=== PATIENT | female | born 1980 | race Caucasian/White ===

== ENCOUNTER 2018-09-19 10:11 | Emergency (ER) | payer OTHER, SELFPAY ==
[2018-09-19 12:24] LABS: Urine Bacteria <20 /HPF (<20); Urine RBC <5 /HPF (NONE SEEN)
[2018-09-19 12:25] LABS: Urine Culture Reflex Order REFLEXED
[2018-09-19 12:27] LABS: Urine Blood NEGATIVE (NEG); Urine Glucose NEGATIVE (NEG); Urine Protein NEGATIVE (NEG)
[2018-09-19 12:27] LABS: Absolute Lymphocytes (CBC) 2.9 K/uL (0.7-4.9); Absolute Monocytes 0.4 K/uL (0.1-1.3); Absolute Neutrophil 6.4 K/uL (1.8-8.0); Basophils % 0.6 % (0-1.3); Eosinophils % 2.2 % (0-4.4); Lymphocytes % 28.9 % (15.3-44.8); MCH 28.3 pg (27.0-35.0); MCV 82.3 fL (80-100); MPV 7.4 fL (7.6-11.3); Monocytes % 3.8 % (3.3-12.3); RBC Red Blood Cell Count 5.35 M/uL (3.86-4.86)
[2018-09-19 12:41] LABS: Albumin 3.8 g/dL (3.4-5.0); Bilirubin Direct 0.1 mg/dL (0-0.2); Bilirubin Total 0.3 mg/dL (0.2-1.0); Protein, Total 7.3 g/dL (6.4-8.2)
--- NOTE | 2018-09-19 14:34 | RAD REPORT ---
EXAM DESCRIPTION: CT - Abdomen Pelvis W Contrast - 09/19/2018 2:16 pm CLINICAL HISTORY: Abdominal pain. Right lower quadrant pain COMPARISON: None. TECHNIQUE: Computed axial tomography of the abdomen and pelvis was obtained. 100 cc Isovue-300 is ad ministered intravenously. Oral contrast was given. All CT scans are performed using dose optimization technique as appropriate and may include automated exposure control or mA/KV adjustment according to patient size. FINDINGS: The gallbladder is been removed 14 millimeter enhancing lesion is present within the posterior segment of the right lobe of the liver . Spleen, pancreas, adrenals and kidneys appear unremarkable. The appendix is normal caliber. There is no evidence of diverticulitis An adnexal mass is not seen Ventral hernia repair IMPRESSION: 14 millimeter enhancing lesion within the liver may represent a hemangioma or other lesi on. Ultrasound in 3 months is recommended for re-evaluation No acute abnormality seen
--- NOTE | 2018-09-19 14:37 | EDPHYS ---
Physician Documentation [facility] Name: Ila Jo Age: 37 yrs Sex: Female : 1980 Arrival Date: 09/19/2018 Time: 10:17 Bed 17 Private MD: None, None ED Physician Alvarado Stroud HPI: 09/19 12:23 This 37 yrs old Female presents to ER via Ambulatory with complaints of kb Abdominal Pain. 12:23 The patient presents with abdominal pain right lower quadrant. Onset: The kb symptoms/episode began/occurred 1 week(s) ago, and became worse. The symptoms do not radiate. Associated signs and symptoms: Pertinent positives: nausea, Pertinent negatives: anorexia, blood in stools, chest pain, constipation, diarrhea, dysuria, fever, headache, hematuria, palpitations, shortness of breath, vaginal discharge, vomiting, vomiting blood. The symptoms are described as constant. Modifying factors: The symptoms are alleviated by nothing, the symptoms are aggravated by pressure. Severity of pain: At its worst the pain was moderate in the emergency department the pain is unchanged. The patient has not experienced similar symptoms in the past. The patient has not recently seen a physician. Pt reports RLQ pain that started a week ago and has been getting progressively worse. Reports she was a month late on her menstrual cycle so she took a test and it was positive. Had tubes tied 7 years ago. Historical: - Allergies: 10:25 PENICILLINS; ph - Home Meds: 10:25 None [Active]; ph - PMHx: 10:25 None; ph - PSHx: 10:26 ; Tubal ligation; Hernia repair; ph - Immunization history:: Adult Immunizations unknown. - Social history:: Smoking status: Patient uses tobacco products, denies chronic smoking, but will smoke occasionally. ROS: 12:22 Constitutional: Negative for fever, chills, and weight loss, Cardiovascular: Negative kb for chest pain, palpitations, and edema, Respiratory: Negative for shortness of breath, cough, wheezing, and pleuritic chest pain, Back: Negative for injury and pain, : Negative for injury, bleeding, discharge, and swelling, MS/Extremity: Negative for injury and deformity, Skin: Negative for injury, rash, and discoloration, Neuro: Negative for headache, weakness, numbness, tingling, and seizure. 12:22 Abdomen/GI: Positive for abdominal pain, Negative for nausea, vomiting, and diarrhea, constipation, abdominal cramps, abdominal distension, anorexia. Exam: 12:22 Constitutional: This is a well developed, well nourished patient who is awake, alert, kb and in no acute distress. Head/Face: Normocephalic, atraumatic. Chest/axilla: Normal chest wall appearance and motion. Nontender with no deformity. No lesions are appreciated. Cardiovascular: Regular rate and rhythm with a normal S1 and S2. No gallops, murmurs, or rubs. Normal PMI, no JVD. No pulse deficits. Respiratory: Lungs have equal breath sounds bilaterally, clear to auscultation and percussion. No rales, rhonchi or wheezes noted. No increased work of breathing, no retractions or nasal flaring. Back: No spinal tenderness. No costovertebral tenderness. Full range of motion. Skin: Warm, dry with normal turgor. Normal color with no rashes, no lesions, and no evidence of cellulitis. MS/ Extremity: Pulses equal, no cyanosis. Neurovascular intact. Full, normal range of motion. Neuro: Awake and alert, GCS 15, oriented to person, place, time, and situation. Cranial nerves II-XII grossly intact. Motor strength 5/5 in all extremities. Sensory grossly intact. Cerebellar exam normal. Normal gait. 12:22 Abdomen/GI: Inspection: abdomen appears normal, Bowel sounds: normal, in all quadrants, Palpation: soft, in all quadrants, moderate abdominal tenderness, in the right lower quadrant. Vital Signs: 10:24 BP 130 / 88; Pulse 80; Resp 18; Temp 97.8; Pulse Ox 98% on R/A; Weight 94.8 kg; Height ph 5 ft. 5 in. (165.10 cm); Pain 9/10; 12:01 BP 125 / 95; Pulse 83; Resp 18; Pulse Ox 99% on R/A; em 13:30 BP 112 / 84; Pulse 76; Resp 18; Pulse Ox 99% on R/A; Pain 9/10; em 14:30 BP 115 / 87; Pulse 70; Resp 18; Pulse Ox 99% on R/A; em 10:24 Body Mass Index 34.78 (94.80 kg, 165.10 cm) ph MDM: 11:35 Patient medically screened. kb 12:21 Data reviewed: vital signs, nurses notes. Data interpreted: Pulse oximetry: on room air kb is 98 %. Interpretation: normal. 14:36 Counseling: I had a detailed discussion with the patient and/or guardian regarding: the kb historical points, exam findings, and any diagnostic results supporting the discharge/admit diagnosis, lab results, radiology results, the need for outpatient follow up, a family practitioner, to return to the emergency department if symptoms worsen or persist or if there are any questions or concerns that arise at home. 09/19 11:45 Order name: Urine Dipstick--Ancillary (enter results) em1 09/19 11:45 Order name: Urine --Ancillary (enter results) em1 09/19 11:46 Order name: Basic Metabolic Panel kb 09/19 11:46 Order name: CBC with Diff kb 09/19 11:46 Order name: Hepatic Function 09/19 11:46 Order name: Lipase kb 09/19 11:46 Order name: Urine Microscopic Only 09/19 12:26 Order name: Urine Microscopic Only; Complete Time: 12:29 EDMS 09/19 12:27 Order name: Urine --Ancillary; Complete Time: 12:29 EDMS 09/19 12:27 Order name: Urine Dipstick-Ancillary; Complete Time: 12:29 EDMS 09/19 12:39 Order name: CBC with Automated Diff; Complete Time: 12:40 EDMS 09/19 12:41 Order name: Basic Metabolic Panel; Complete Time: 12:42 EDMS 09/19 12:41 Order name: Liver (Hepatic) Function; Complete Time: 12:42 EDMS 09/19 12:41 Order name: Lipase; Complete Time: 12:42 EDMS 09/19 10:34 Order name: Urine Test (obtain specimen); Complete Time: 11:44 kb 09/19 10:34 Order name: Urine Dipstick-Ancillary (obtain specimen); Complete Time: 11:44 kb 09/19 11:46 Order name: IV Saline Lock; Complete Time: 13:38 kb 09/19 11:46 Order name: Labs collected and sent; Complete Time: 13:38 kb 09/19 11:46 Order name: CT Abd/Pelvis - W/Contrast kb 09/19 14:35 Order name: CT; Complete Time: 14:35 EDMS Administered Medications: No medications were administered Disposition: 09/19/18 14:37 Discharged to Home. Impression: Lower abdominal pain, unspecified. - Condition is Stable. - Discharge Instructions: Abdominal Pain, Adult, [id number]. - Prescriptions for Diclofenac Sodium 75 mg Oral Tablet, Delayed Release (E.C.) - take 1 tablet by ORAL route 2 times per day As needed; 30 tablet. - Medication Reconciliation Form, Thank You Letter, Antibiotic Education, Prescription Opioid Use form. - Follow up: Emergency Department; When: As needed; Reason: Worsening of condition. Follow up: Private Physician; When: 2 - 3 days; Reason: Recheck today's complaints, Continuance of care, Re-evaluation by your physician. Addendum: 09/21/2018 09:10 Co-signature as Attending Physician, Alvarado Stroud MD I agree with the assessment and k dr plan of care. Signatures: Dispatcher [employer] EDCO Megan Landrum, K [employer] SCHOOL PRINCIPAL-C K [employer] SCHOOL PRINCIPAL-Ckb Alvarado Stroud MD MD [facility] Roberto Carlos Huerta, INSIDE CHANNEL ACCOUNT MANAGER INSIDE CHANNEL ACCOUNT MANAGER em Josee Allison RN RN ph Corrections: (The following items were deleted from the chart) 09/19 15:09 14:37 09/19/2018 14:37 Discharged to Home. Impression: Lower abdominal pain, em unspecified. Condition is Stable. Forms are Medication Reconciliation Form, Thank You Letter, Antibiotic Education, Prescription Opioid Use. Follow up: Emergency Department; When: As needed; Reason: Worsening of condition. Follow up: Private Physician; When: 2 - 3 days; Reason: Recheck today's complaints, Continuance of care, Re-evaluation by your physician. kb
--- NOTE | 2018-09-19 14:37 | ER ---
Nurse's Notes [facility] Name: Ila Jo Age: 37 yrs Sex: Female : 1980 Arrival Date: 09/19/2018 Time: 10:17 Bed 17 Private MD: None, None Diagnosis: Lower abdominal pain, unspecified Presentation: 09/19 10:23 Presenting complaint: Patient states: " I have been having stomach pain for a week, I ph took a test yesterday because my period has been late and it was positive but I had my tubes tied 7 years ago." Pt reports RLQ pain, denies N/V/D or vaginal bleeding. Transition of care: patient was not received from another setting of care. Onset of symptoms was September 19, 2018. Risk Assessment: Do you want to hurt yourself or someone else? Patient reports no desire to harm self or others. Initial Sepsis Screen: Does the patient meet any 2 criteria? No. Patient's initial sepsis screen is negative. Care prior to arrival: None. 10:23 Method Of Arrival: Ambulatory ph 10:23 Acuity: LEANN 3 ph 15:08 Initial Sepsis Screen: Does the patient have a suspected source of infection? No. em Patient's initial sepsis screen is negative. Triage Assessment: 13:38 General: Appears. em Historical: - Allergies: 10:25 PENICILLINS; ph - Home Meds: 10:25 None [Active]; ph - PMHx: 10:25 None; ph - PSHx: 10:26 ; Tubal ligation; Hernia repair; ph - Immunization history:: Adult Immunizations unknown. - Social history:: Smoking status: Patient uses tobacco products, denies chronic smoking, but will smoke occasionally. Screenin:00 Abuse screen: Denies threats or abuse. Nutritional screening: No deficits noted. em Tuberculosis screening: No symptoms or risk factors identified. Fall Risk None identified. Assessment: 12:01 General: Appears in no apparent distress. uncomfortable, Behavior is calm, cooperative. em Pain: Complains of pain in right lower quadrant Pain currently is 9 out of 10 on a pain scale. Quality of pain is described as sharp, stabbing, Pain began 1 week. Neuro: Level of Consciousness is awake, alert, obeys commands, Oriented to person, place, time, situation. Cardiovascular: Capillary refill < 3 seconds Patient's skin is warm and dry. Respiratory: Airway is patent Respiratory effort is even, unlabored, Respiratory pattern is regular, symmetrical. GI: Abdomen is round non-distended, Bowel sounds present X 4 quads. Abd is soft X 4 quads Abdomen is tender to palpation in right lower quadrant Reports nausea, Patient currently denies diarrhea, vomiting. : Denies burning with urination, discharge, vaginal bleeding. EENT: No signs and/or symptoms were reported regarding the EENT system. Derm: Skin is intact, is healthy with good turgor, Skin is pink, warm \\T\\ dry. Musculoskeletal: Range of motion: intact in all extremities. 12:15 General: The previous assessment is accurate, call light remains within reach. . ss 13:41 Reassessment: Patient appears in no apparent distress at this time. Patient and/or em family updated on plan of care and expected duration. Pain level reassessed. Patient is alert, oriented x 3, equal unlabored respirations, skin warm/dry/pink. pending CT. 14:45 Reassessment: Patient appears in no apparent distress at this time. Patient and/or em family updated on plan of care and expected duration. Pain level reassessed. Patient is alert, oriented x 3, equal unlabored respirations, skin warm/dry/pink. Vital Signs: 10:24 BP 130 / 88; Pulse 80; Resp 18; Temp 97.8; Pulse Ox 98% on R/A; Weight 94.8 kg; Height ph 5 ft. 5 in. (165.10 cm); Pain 9/10; 12:01 BP 125 / 95; Pulse 83; Resp 18; Pulse Ox 99% on R/A; em 13:30 BP 112 / 84; Pulse 76; Resp 18; Pulse Ox 99% on R/A; Pain 9/10; em 14:30 BP 115 / 87; Pulse 70; Resp 18; Pulse Ox 99% on R/A; em 10:24 Body Mass Index 34.78 (94.80 kg, 165.10 cm) ph ED Course: 10:17 Patient arrived in ED. sb2 10:18 None, None is Private Physician. sb2 10:24 Triage completed. ph 11:35 Megan Landrum [facility]NP-C [facility]. kb 11:35 Alvarado Stroud MD is Attending Physician. kb 11:52 Roberto Carlos Huerta LVN is Primary Nurse. em 12:00 Arm band placed on. em 12:00 Patient has correct armband on for positive identification. Placed in gown. Bed in low em position. Call light in reach. Side rails up X2. 12:00 Initial lab(s) drawn, by me, sent to lab. Inserted saline lock: 20 gauge in right em antecubital area, using aseptic technique. Blood collected. 14:[address] via wheelchair. vr 15:06 No provider procedures requiring assistance completed. IV discontinued, intact, em bleeding controlled, No redness/swelling at site. Pressure dressing applied. Administered Medications: No medications were administered Outcome: 14:37 Discharge ordered by . kb 15:06 Discharged to home ambulatory. em 15:06 Condition: good 15:06 Discharge instructions given to patient, Instructed on discharge instructions, follow up and referral plans. medication usage, Demonstrated understanding of instructions, follow-up care, medications, Prescriptions given X 1. 15:09 Patient left the ED. em Signatures: Megan Landrum, ELECTRONIC MAINTENANCE SUPERVISOR-C ELECTRONIC MAINTENANCE SUPERVISOR-CkRoberto Carlos Johnson LVN LVN em Gladys Scruggs, ANIYA RN Leigh Ann Cortez vr Josee Allison RN RN Ximena Martinez2 Corrections: (The following items were deleted from the chart) 13:49 13:41 Reassessment: Patient appears in no apparent distress at this time. Patient em and/or family updated on plan of care and expected duration. Pain level reassessed. Patient is alert/active/playful, equal unlabored respirations, skin warm/dry/pink. em 19:18 13:41 Reassessment: Patient appears in no apparent distress at this time. Patient em and/or family updated on plan of care and expected duration. Pain level reassessed. Patient is alert/active/playful, equal unlabored respirations, skin warm/dry/pink. pending CT em
== END 2018-09-19 15:09 | disposition home or self-care (01) ==
LOC: ER 10:11
DX: R10.31 Right lower quadrant pain (principal); Z72.0 Tobacco use; Z88.0 Allergy status to penicillin
CPT/HCPCS: 36415; 74177; 80048; 80076; 81003; 81015; 81025; 83690; 85025; 87086; 87088; 99284; Q9967